=== PATIENT | female | born 1960 ===

== ENCOUNTER 2022-04-30 10:30 | Inpatient (IN) | payer OTHER ==
[~2022-04-30] VITALS: Ht 152.4 cm; Wt 178.0 kg
[2022-04-30] MEDS ORDERED: ZOLOFT25 MG PO (14:26)
[2022-04-30] MEDS ORDERED: LIPITOR40 MG PO (14:26)
[2022-04-30] MEDS ORDERED: COZAAR25 MG PO (14:27)
[2022-05-05] MEDS ORDERED: COLACE100 MG PO (10:03)
[2022-05-05] MEDS ORDERED: NEURONTIN800 MG PO (10:04)
[2022-05-05] MEDS ORDERED: PERCOCET 5-3251 EACH PO (10:05)
[2022-05-05] MEDS ORDERED: MEDROLPACK PO (10:05)
[2022-05-05] MEDS ORDERED: AMOX-CLAV 875-1 EACH PO (10:05)
[2022-05-05] MEDS ORDERED: BACTRIM DS TAB1 EACH PO ×2 (14:14→14:15)
== END 2022-05-07 12:32 | DRG 455 ==
LOC: O/R 05-05 05:35 → SURG 05-05 05:35
PROVIDERS: ADMIT Orthopaedic Surgery Orthopaedic Surgery of the Spine; ATTEND Orthopaedic Surgery Orthopaedic Surgery of the Spine
PROC: 0SG0071 Fusion of Lumbar Vertebral Joint with Autologous Tissue Substitute, Posterior Approach, Posterior Column, Open Approach (ICD-10-PCS; 2022-05-05)
PROC: 0ST20ZZ Resection of Lumbar Vertebral Disc, Open Approach (ICD-10-PCS; 2022-05-05)
PROC: 0QB30ZZ Excision of Left Pelvic Bone, Open Approach (ICD-10-PCS; 2022-05-05)
PROC: 07DR0ZZ Extraction of Iliac Bone Marrow, Open Approach (ICD-10-PCS; 2022-05-05)
PROC: 4A12X4Z Monitoring of Cardiac Electrical Activity, External Approach (ICD-10-PCS; 2022-05-05)
PROC: XRGB0R7 Fusion of Lumbar Vertebral Joint using Custom-Made Anatomically Designed Interbody Fusion Device, Open Approach, New Technology Group 7 (ICD-10-PCS; principal; 2022-05-05 14:00)
DX: M43.16 Spondylolisthesis, lumbar region (principal); M48.062 Spinal stenosis, lumbar region with neurogenic claudication; I10 Essential (primary) hypertension

== ENCOUNTER 2023-06-01 10:35 | Inpatient (IN) | payer OTHER ==
[~2023-06-01 10:35] MED LIST: AMOX-CLAV 875-1 EACH PO; BACTRIM DS TAB1 EACH PO; COLACE100 MG PO; COZAAR25 MG PO; LIPITOR40 MG PO; MEDROLPACK PO; NEURONTIN800 MG PO; PERCOCET 5-3251 EACH PO; ZOLOFT25 MG PO
[2023-06-01] MEDS ORDERED: KLONOPIN 1MG (10:43)
[2023-06-07] MEDS ORDERED: ATORVASTATIN CA10 MG (08:11)
[2023-06-07] MEDS ORDERED: CLONAZEPAM1 MG (08:11)
[2023-06-07] MEDS ORDERED: RISEDRONATE SOD35 MG (08:11)
[2023-06-07] MEDS ORDERED: MEDROLPACK PO (09:43)
[2023-06-07] MEDS ORDERED: PERCOCET 5-3251 EACH PO (09:43)
[2023-06-07] MEDS ORDERED: AMOX-CLAV 875-1 EACH PO (09:43)
[2023-06-07] MEDS ORDERED: COLACE100 MG PO (09:44)
[2023-06-07] MEDS ORDERED: GABAPENTIN100 M2 PO (09:44)
[2023-06-07] MEDS ORDERED: NEURONTIN800 MG PO (09:45)
[2023-06-07] MEDS ORDERED: CEFAZOLIN SODIUM 1,000 MG VIAL ONE (09:55)
[2023-06-07] MEDS ORDERED: 0.9 % SODIUM CHLORIDE 1,000 ML IV SCH (10:00)
[2023-06-07] MEDS ORDERED: ENALAPRILAT DIHYDRATE 1.25 MG/ML VIAL IV PRN (10:00)
[2023-06-07] MEDS ORDERED: PROMETHAZINE HCL 50 MG/ML AMPUL IM PRN (10:00)
[2023-06-07] MEDS ORDERED: METHYLPREDNISOLONE ACETATE 80 MG/ML VIAL ONE (10:35)
[2023-06-07] MEDS ORDERED: METHYLPREDNISOLONE SOD SUCC 125 MG VIAL ONE (10:35)
[2023-06-07] MEDS ORDERED: VANCOMYCIN HCL 1,000 MG VIAL ONE (10:35)
[2023-06-07] MEDS ORDERED: VANCOMYCIN HCL 1,000 MG VIAL IV ONE (11:15)
[2023-06-07] MEDS ORDERED: METHYLPREDNISOLONE ACETATE 80 MG/ML VIAL IU ONE (11:15)
[2023-06-07] MEDS ORDERED: SUGAMMADEX SODIUM 200 MG/2 ML VIAL IV ONE ×2 (11:15→11:33)
[2023-06-07] MEDS ORDERED: CEFAZOLIN SODIUM 1,000 MG VIAL IV ONE (11:15)
[2023-06-07] MEDS ORDERED: METHYLPREDNISOLONE SOD SUCC 125 MG VIAL IV ONE ×2 (11:15)
[2023-06-07] MEDS ORDERED: VANCOMYCIN HCL 1,000 MG VIAL IR ONE (11:15)
[2023-06-07] MEDS ORDERED: DOCUSATE SODIUM 100MG CAP PO SCH (13:00)
[2023-06-07] MEDS ORDERED: MORPHINE SULFATE 4 MG,MORPHINE SULFATE 2 MG IV SCH (13:00)
[2023-06-07] MEDS ORDERED: LOSARTAN POTASSIUM 25 MG TABLET PO SCH (17:00)
[2023-06-07] MEDS ORDERED: FAMOtidine 20 MG TABLET PO SCH (17:00)
[2023-06-07] MEDS ORDERED: CEFAZOLIN SODIUM 1,000 MG in 0.9 % SODIUM CHLORIDE 50 ML IV SCH (17:00)
[2023-06-07] MEDS ORDERED: METHYLPREDNISOLONE SOD SUCC 125 MG VIAL IV SCH (17:00)
[2023-06-07] MEDS ORDERED: VANCOMYCIN HCL 1,000 MG VIAL IV SCH (21:00)
[2023-06-07] MEDS ORDERED: GABAPENTIN 800 MG TABLET PO SCH (21:00)
[2023-06-08] MEDS ORDERED: SODIUM CHLORIDE 0.45 % 1,000 ML IV SCH
[2023-06-08] MEDS ORDERED: OxyCODONE HCL/APAP UD (PERCOCET) PO PRN (06:01)
[2023-06-08] MEDS ORDERED: TAMSULOSIN HCL 0.4 MG CAP PO SCH (09:00)
[2023-06-08] MEDS ORDERED: ATORVASTATIN CALCIUM 20 MG TABLET PO SCH (09:00)
[2023-06-08] MEDS ORDERED: SERTRALINE HCL 25 MG TABLET PO SCH (09:00)
== END 2023-06-08 15:09 | disposition home or self-care (01) | DRG 520 ==
LOC: O/R 06-07 08:09 → SURH 06-07 08:09 → PED 06-07 12:54 → SURH 06-07 18:32
PROVIDERS: ADMIT Orthopaedic Surgery Orthopaedic Surgery of the Spine; ATTEND Orthopaedic Surgery Orthopaedic Surgery of the Spine
PROC: 00NY0ZZ Release Lumbar Spinal Cord, Open Approach (ICD-10-PCS; principal; 2023-06-07 10:15)
DX: M48.062 Spinal stenosis, lumbar region with neurogenic claudication (principal); M54.16 Radiculopathy, lumbar region; I10 Essential (primary) hypertension